=== PATIENT | female | born 2000 | race Caucasian/White ===

== ENCOUNTER 2020-09-20 06:48 | Emergency (ER) | payer OTHER ==
[2020-09-20] MEDS ORDERED: CYCLOBENZAPRINE10 M1 PO (07:58)
[2020-09-20 08:28] VITALS: BP 123/99
== END 2020-09-20 08:11 | disposition home or self-care (01) ==
LOC: ED 06:48
DX: M54.5 Low back pain (principal)
CPT/HCPCS: J1885; J2360